=== PATIENT | female | born 1990 | race Caucasian/White ===

== ENCOUNTER 2022-11-20 07:30 | Inpatient (IN) | payer BC ==
[2022-11-20 11:38] LABS: Hemoglobin 13.3 g/dL (12.0-15.5); Platelet Count 396 10x3/uL (150-450)
[2022-11-20 12:07] LABS: SARS-CoV-2 NAA Rapid Test Not Detected (NotDetected)
[2022-11-20 12:09] LABS: HBSAg Index 0.14 S/CO (0-0.99); Hep B Surf Ag Non-Reactive S/CO (NonReactive)
[2022-11-20 12:10] LABS: Syphilis Antibody Nonreactive (Nonreactive); Syphilis Antibody Index 0.07 S/CO (<1.00 Non-Reactive)
[2022-11-21] MEDS ORDERED: Promethazine HCl 25 MG/ML VIAL IM PRN ×3 (06:04→11:22)
[2022-11-21] MEDS ORDERED: Bicitra 30 ML UDCUP PO PRN (06:04)
[2022-11-21] MEDS ORDERED: Ondansetron PF 4 MG/2 ML Vial IVP PRN ×3 (06:04→11:22)
[2022-11-21] MEDS ORDERED: CEFAZOLIN 2 GM in Sodium Chloride 0.9% 100 ML IVPB SCH (06:04)
[2022-11-21] MEDS ORDERED: Famotidine/PF 20 mg/2ml Vial SLOW IVP PRN (06:04)
[2022-11-21] MEDS ORDERED: hydrALAZINE 20 MG/ML VIAL SLOW IVP PRN ×2 (06:04→11:22)
[2022-11-21 06:50] VITALS: BMI 32.5
[2022-11-21] MEDS ORDERED: Glycopyrrolate 0.2 MG/ML 5 ML SYRINGE ONE (06:57)
[2022-11-21] MEDS ORDERED: ePHEDrine Sulfate 50 MG/10 ML VIAL ONE (06:57)
[2022-11-21] MEDS ORDERED: Oxytocin 10 UNITS/ML VIAL ONE (06:58)
[2022-11-21] MEDS ORDERED: Ondansetron PF 4 MG/2 ML Vial ONE (06:58)
[2022-11-21] MEDS ORDERED: Phenylephrine 10 MG/ML VIAL ONE ×2 (06:58→06:59)
[2022-11-21] MEDS ORDERED: Ketorolac Tromethamine 30 MG/ML VIAL ONE (06:58)
[2022-11-21] MEDS ORDERED: PHENYLEPHRINE-NS 100 MCG/ML 10 ML SYRINGE ONE (06:58)
[2022-11-21] MEDS ORDERED: Morphine PF 10 MG/10 ML VIAL ONE (06:58)
[2022-11-21] MEDS ORDERED: Dexamethasone 4 mg/ml Vial ONE (06:58)
[2022-11-21] MEDS ORDERED: Naloxone HCl 0.4 mg/ml Vial IVP PRN ×2 (08:25)
[2022-11-21] MEDS ORDERED: Moisturizing Cream (Eucerin) 113 GM JAR TOP PRN (08:25)
[2022-11-21] MEDS ORDERED: Meperidine HCl/PF 25 MG/ML VIAL SLOW IVP PRN (08:25)
[2022-11-21] MEDS ORDERED: Promethazine HCl 25 MG SUPP PR PRN (08:25)
[2022-11-21] MEDS ORDERED: Naloxone HCl 0.4 mg/ml Vial IV PRN (08:25)
[2022-11-21] MEDS ORDERED: Ondansetron HCl/PF 4 MG/2 ML Vial IVP PRN (08:25)
[2022-11-21] MEDS ORDERED: diphenhydrAMINE 50 MG/ML VIAL IVP PRN (08:25)
[2022-11-21] MEDS ORDERED: Fentanyl 100 MCG/2 ML VIAL SLOW IVP PRN (08:25)
[2022-11-21] MEDS ORDERED: Ketorolac Tromethamine 30 MG/ML VIAL IVP SCH (08:30)
[2022-11-21] MEDS ORDERED: Communication Order-Pharmacy FS SCH (08:30)
[2022-11-21] MEDS ORDERED: Bisacodyl 10 MG SUPP PR PRN (11:22)
[2022-11-21] MEDS ORDERED: Lanolin Ointment 7 GM TUBE TOP PRN (11:22)
[2022-11-21] MEDS ORDERED: Boostrix 0.5 ML (Tdap) VIAL (>/=7 yrs of age) IM ONE (11:22)
[2022-11-21] MEDS ORDERED: diphenhydrAMINE 25 MG CAP PO PRN (11:22)
[2022-11-21] MEDS ORDERED: Simethicone Chewable 80 MG TAB PO PRN (11:22)
[2022-11-21] MEDS ORDERED: Acetaminophen 325 MG TAB PO PRN (11:22)
[2022-11-21] MEDS ORDERED: Prenatal Vitamin 1 TAB PO SCH (12:00)
[2022-11-21] MEDS ORDERED: Docusate 100 MG CAP PO SCH (12:00)
[2022-11-21] MEDS ORDERED: Ferrous Sulfate 325 MG TAB PO SCH (12:00)
[2022-11-21] MEDS: Ketorolac Tromethamine 30 MG/ML VIAL IVP PRN ×2 (13:49→21:15)
[2022-11-21] MEDS ORDERED: HYDROcodone/Acetaminophen 5/325 mg Tablet PO PRN ×2 (20:30)
[2022-11-21] MEDS: Docusate 100 MG CAP PO SCH (21:15)
[2022-11-21] MEDS: Ferrous Sulfate 325 MG TAB PO SCH (21:18)
[2022-11-22] MEDS: Ketorolac Tromethamine 30 MG/ML VIAL IVP PRN (04:16)
[2022-11-22 05:37] LABS: Mean Corpuscular HGB CONC 33.4 g/dL (32.0-36.0); Mean Corpuscular Volume 89.6 fl (81.6-98.3); Mean Platelet Volume 10.7 fl (7.4-10.4); Platelet Count 304 10x3/uL (150-450); RBC Distribution Width 13.2 % (11.5-14.5); Red Blood Cell (RBC) Count 3.67 10x6/uL (3.90-5.03); White Blood Cell (WBC) Count 14.3 10x3/uL (3.5-10.5)
[2022-11-22] MEDS: Ferrous Sulfate 325 MG TAB PO SCH ×2 (07:38→21:59)
[2022-11-22] MEDS: Prenatal Vitamin 1 TAB PO SCH (08:26)
[2022-11-22] MEDS: Docusate 100 MG CAP PO SCH ×2 (08:26→21:59)
[2022-11-22] MEDS: Ibuprofen 800 MG TAB PO SCH ×2 (14:27→21:59)
[2022-11-23] MEDS: Ibuprofen 800 MG TAB PO SCH (04:45)
[2022-11-23 05:59] VITALS: TEMP 97.8
[2022-11-23] MEDS: Ferrous Sulfate 325 MG TAB PO SCH (08:44)
[2022-11-23] MEDS: Docusate 100 MG CAP PO SCH (08:44)
[2022-11-23] MEDS: Prenatal Vitamin 1 TAB PO SCH (08:44)
[2022-11-23 09:38] VITALS: BP 134/77
== END 2022-11-23 11:00 | disposition home or self-care (01) | DRG 788 ==
LOC: EDBD 07:30 → CSHLD 11-21 05:19 → CSHPP 11-21 10:49
PROVIDERS: ADMIT Student in an Organized Health Care Education/Training Program; ATTEND Student in an Organized Health Care Education/Training Program
PROC: 10D00Z1 Extraction of Products of Conception, Low, Open Approach (ICD-10-PCS; principal; 2022-11-21)
DX: O34.211 Maternal care for low transverse scar from previous cesarean delivery (principal); Z37.0 Single live birth; Z3A.39 39 weeks gestation of pregnancy; Z20.822 Contact with and (suspected) exposure to COVID-19
CPT/HCPCS: 36415; 51702; 85014; 85018; 85027; 85049; 86780; 86850; 86900; 86901; 87340; J1100; J1885; J2274; J2370; J2405; J2590; J3490; S0028; U0002